=== PATIENT | female | born 1985 | race Caucasian/White ===

== ENCOUNTER → 2016-10-01 | Day surgery (SDC) | payer BC ==
[2016-09-21 12:40] VITALS: Ht 157.5 cm; Wt 66.8 kg
[~2016-10-01] VITALS: Ht 157.5 cm; Wt 66.8 kg
[~2016-10-01] MED LIST: ATROPINE SULFATE 0.1 MG/ML 5ML SYR IV PRN; CETI10TA10 PO; CHOL20009 PO; CYAN100020 PO; EpHEDrine SULFATE INJ 50 MG/ML AMP IV PRN; LIDOCAINE HCL 2% 2 ML VIAL (20MG/ML) ONE; MIDAZOLAM HCL 1 MG/ML 2ML VIAL ONE; NXM/40 PO; OMEG10007 PO; ONDANSETRON INJ 2 MG/ML 2 ML VIAL ONE; PROPOFOL IV EMULSION 10 MG/ML 20 ML VIAL IV ONE; RANI150T3 PO
[2016-10-01 12:41] VITALS: TEMP 36.8
--- NOTE | 2016-10-01 12:51 | Endo History and Physical ---
History & Physical Date of Service: Oct 01, 2016. Chief Complaint: REFLUX Referring Physician: SHOBHA COTTO History of Present Illness For EGD with Parkinson Past Surgical History Hx Cardiac Surgery: No Hx Internal Defibrillator: No Hx Pacemaker: No Hx Abdominal Surgery: Yes (D&C, ) Hx of Implantable Prosthesis: No Hx Post-Op Nausea and Vomiting: No Hx Cancer Surgery: No Hx Thoracic Surgery: No Hx Orthopedic: No Hx Urinary Tract Surgery: No Family History None Social History Smoking Status: Never Smoker Hx Substance Use: No Hx Alcohol Use: Yes (VERY RARELY) Allergies Coded Allergies: Ceftriaxone (Verified Allergy, Unknown, A BABY, UNKNOWN, 09/21/16) Penicillins (Verified Allergy, Unknown, UNSURE, A BABY, 09/21/16) Current Medications Reported Home Medications Medications Dose Route/Sig Max Daily Dose Days Date Category Zyrtec (Cetirizine Hcl) 10 Mg Tab 10 Mg PO QAM 09/21/16 Reported [place]-3 (Fish Oil) 1 Ea Cap 1 Cap PO QAM 09/21/16 Reported Vitamin D (Cholecalciferol) 2,000 Unit Tab 1 Tab PO QAM 09/21/16 Reported Vitamin B12 (Cyanocobalamin) 1,000 Mcg Tab 2,000 Mcg PO QAM 09/21/16 Reported Nexium (Esomeprazole Magnesium) 40 Mg Capcr 40 Mg PO QAM 09/21/16 Reported Zantac (Ranitidine HCl) 150 Mg Tab 150 Mg PO HS 09/21/16 Reported Vital Signs Weight (Kilograms): 66.82 Height (Feet): 5 Height (Inches): 2 Date Time Temp Pulse Resp B/P Pulse Ox O2 Delivery O2 Flow Rate FiO2 10/01/16 12:41 36.8 92 20 140/92 94 Room Air Physical Exam General Appearance: WD/WN Respiratory/Chest: Respiratory effort: no dyspnea Cardiovascular: Heart Auscultation: RRR Abdomen: Inspection & Palpation: soft Assessment and Plan Chest pain for EGD with Parkinson
--- NOTE | 2016-10-01 13:16 | Discharge Instructions ---
Endoscopy Patient Instructions Date / Procedure(s) Performed Oct 01, 2016. EGD Allergy Information Coded Allergies: Ceftriaxone (Verified Allergy, Unknown, A BABY, UNKNOWN, 09/21/16) Penicillins (Verified Allergy, Unknown, UNSURE, A BABY, 09/21/16) Discharge Date / Findings Oct 01, 2016. Normal EGD, Parkinson placed Medication Instructions Restart Stopped Medication(s): No acid reducing meds Reported Home Medications Medications Dose Route/Sig Max Daily Dose Days Date Category Zyrtec (Cetirizine Hcl) 10 Mg Tab 10 Mg PO QAM 09/21/16 Reported [place]-3 (Fish Oil) 1 Ea Cap 1 Cap PO QAM 09/21/16 Reported Vitamin D (Cholecalciferol) 2,000 Unit Tab 1 Tab PO QAM 09/21/16 Reported Vitamin B12 (Cyanocobalamin) 1,000 Mcg Tab 2,000 Mcg PO QAM 09/21/16 Reported Nexium (Esomeprazole Magnesium) 40 Mg Capcr 40 Mg PO QAM 09/21/16 Reported Zantac (Ranitidine HCl) 150 Mg Tab 150 Mg PO HS 09/21/16 Reported Provider Instructions Activity Restrictions - No exercising or heavy lifting for 24 hours. - Do not drink alcohol the day of the procedure. - Do not drive a car or operate machinery until the day after the procedure. - Do not make any important decisions or sign important papers in 24 hours after the procedure. Following Day: - Return to full activity which may include returning to work/school. Diet Start your diet with liquids and light foods (jello, soup, juice, toast). Then eat your usual diet if not nauseated. Treatment For Common After Affects For mild abdominal pain, bloating, or excessive gas: - Rest - Eat lightly - Lie on right side Follow-Up Information Follow-up with SHOBHA COTTO as scheduled Anesthesia Information What You Should Know You have had a procedure that required some medicine to reduce anxiety and discomfort. This treatment is called moderate sedation. After receiving the treatment, you may be sleepy, but you will be able to breathe on your own. The effects of the treatment may last for several hours. Follow these instructions along with Activity/Diet recommendations noted above: * Do NOT do anything where dizziness or clumsiness would be dangerous. * Rest quietly at home today, then you can be up and about tomorrow. * Have a responsible person stay with you the rest of today. * You may have had an I.V. today. If so, you may take the dressing off later today. Recommendations Call your doctor if: * Trouble breathing * Continuous vomiting for more than 24 hours * Temperature above 101 degrees * Severe abdominal pain or bloating * Pain not relieved by pain medicine ordered * There is increased drainage or redness from any incision * A large amount of rectal bleeding greater than 2-3 tablespoons. (If you had a polyp/s removed or have hemorrhoids, a small amount of blood - from the rectum is to be expected.) * You have any unanswered questions or concerns. IN THE EVENT OF A SERIOUS EMERGENCY, GO TO THE NEAREST EMERGENCY ROOM Your discharge instructions were prepared by provider Juan Holland. Patient Instructions Signature Page Ana Sprague Patient (or Guardian) Signature/Date: I have read and understand the instructions given to me by my caregivers. Caregiver/RN/Doctor Signature/Date: The above-named patient and/or guardian has received patient instructions on this date. + Original Patient Signature Page (only) stays with chart. Please make copy for patient.
--- NOTE | 2016-10-01 13:20 | GI REPORT ---
Procedure Date: 10/01/2016 12:49 PM Procedure: Upper GI endoscopy Indications: Heartburn, Chest pain (non cardiac), Nausea Medicines: Midazolam 2 mg IV, Zofran 4 mg IV, Propofol total dose 380 mg IV, Lidocaine 60 mg IV Complications: No immediate complications. Estimated Blood Loss: Estimated blood loss: none. Procedure: Pre-Anesthesia Assessment: - Prior to the procedure, a History and Physical was performed, and patient medications, allergies and sensitivities were reviewed. The patient's tolerance of previous anesthesia was reviewed. - The risks and benefits of the procedure and the sedation options and risks were discussed with the patient. All questions were answered and informed consent was obtained. After obtaining informed consent, the endoscope was passed under direct vision. Throughout the procedure, the patient's blood pressure, pulse, and oxygen saturations were monitored continuously. The scope was introduced through the mouth, and advanced to the second part of duodenum. The upper GI endoscopy was accomplished without difficulty. The patient tolerated the procedure well. Findings: The examined esophagus was normal. The [place]IV[place] capsule with delivery system was introduced through the mouth and advanced into the esophagus, such that the LIVINGSTON pH capsule was positioned 32 cm from the incisors, which was 6 cm proximal to the EG junction. The [place]IVING[place]ON pH capsule was then deployed and attached to the esophageal mucosa. The delivery system was then withdrawn. Endoscopy was utilized for probe placement and diagnostic evaluation. Estimated blood loss: none. The entire examined stomach was normal. The examined duodenum was normal. Impression: - Normal esophagus. - Normal stomach. - Normal examined duodenum. - The LIVINGSTON pH capsule was deployed. - No specimens collected. Recommendation: - Discharge patient to home (ambulatory). - Continue present medications. - Return to primary care physician PRN. Juan Holland M.D. Juan Holland MD 10/01/2016 1:19:54 PM This report has been signed electronically. Note Initiated On: 10/01/2016 12:49 PM
--- NOTE | 2016-10-01 13:49 | Anesthesiology Progress Note ---
Anesthesia Post Op Note Date & Time Oct 01, 2016 at 13:48 Vital Signs Pain Intensity: 0 Vital Signs Past 12 Hours Date Time Temp Pulse Resp B/P Pulse Ox O2 Delivery O2 Flow Rate FiO2 10/01/16 13:36 84 20 144/69 98 Room Air 10/01/16 13:20 85 20 84/48 96 Room Air 10/01/16 12:41 36.8 92 20 140/92 94 Room Air Notes Mental Status: alert / awake / arousable, participated in evaluation Pt Amnestic to Procedure: Yes Nausea / Vomiting: adequately controlled Pain: adequately controlled Airway Patency, RR, SpO2: stable & adequate BP & HR: stable & adequate Hydration State: stable & adequate Anesthetic Complications: no major complications apparent
[2016-10-01 13:51] VITALS: BP 126/79; PULSE 90; O2SAT 98
--- NOTE | 2016-10-11 15:12 | OPERATIVE REPORT ---
DATE OF OPERATION: 10/11/2016 PROCEDURE PERFORMED: Ambulatory pH monitoring with Parkinson. PROCEDURE: The patient had a Parkinson clip placed 6 cm above the lower esophageal sphincter and position confirmed endoscopically. The procedure was done because of chest pain, regurgitation and heartburn. The clip stayed in place for the full 48 hours and recorded accurately during that time. Her overall 48-hour DeMeester score was 25.1, which is an abnormal range for significant reflux. During the first 24 hours her DeMeester score was 32.6. During the second 24 hours it was 17.7, both in the abnormal range indicating significant acid reflux. Three symptoms were monitored - chest pain, regurgitation and heartburn. There was 1 episode of chest pain which was not related to acid reflux. There were 9 episodes of regurgitation recorded. Only 3 related to acid reflux and 22 episodes of heartburn recorded, 7 related to acid reflux. This was a significant correlation for heartburn but not for regurgitation or chest pain. IMPRESSION: The patient has significant acid reflux with significant correlation to her heartburn symptoms but not to regurgitation or chest pain. I attest to the content of the Intraoperative Record and any orders documented therein. Any exceptio ns are noted below.
== END | disposition home or self-care (01) ==
LOC: C.GI 12:19
PROVIDERS: ATTEND Internal Medicine Gastroenterology
DX: K21.9 Gastro-esophageal reflux disease without esophagitis (principal); R07.9 Chest pain, unspecified; R11.0 Nausea; Z88.0 Allergy status to penicillin; Z88.8 Allergy status to other drugs, medicaments and biological substances